=== PATIENT | female | born 1985 | race Caucasian/White ===

== ENCOUNTER → 2020-06-19 09:38 | Outpatient (BNVA) | payer MEDICAID, SELFPAY | PROVIDERS: PCP Internal Medicine; Referring Provider Internal Medicine; Visit Provider Dietitian, Registered | DX: Z76.89 Persons encountering health services in other specified circumstances (principal) ==

== ENCOUNTER → 2020-08-07 09:27 | Outpatient (BNVA) | payer MEDICAID, SELFPAY | PROVIDERS: PCP Internal Medicine; Visit Provider Dietitian, Registered | DX: Z76.89 Persons encountering health services in other specified circumstances (principal) ==

== ENCOUNTER → 2021-07-31 15:14 | Outpatient (BNVA) | payer MEDICAID, SELFPAY | PROVIDERS: PCP Internal Medicine; Visit Provider Physician Assistant | DX: E66.01 Morbid (severe) obesity due to excess calories (principal); Z68.41 Body mass index [BMI] 40.0-44.9, adult | CPT/HCPCS: 99212 ==

== ENCOUNTER 2021-08-10 10:42 | Outpatient (REF) | payer MEDICAID, SELFPAY ==
[2021-08-10 10:54] LABS: MANUAL DIFF FLAG NO
[2021-08-10 11:17] LABS: Basophils Percent Auto 0.4 % (0-2); Eosinophils Absolute Auto 0.2 X10*3/uL (0.0-0.4); Eosinophils Percent Auto 2.5 % (0-4); Hematocrit 32.2 % (37.0-47.0); Hemoglobin 9.4 g/dl (12.0-16.0); Imm Gran Abs Auto 0.02 X10*3/uL (0.00-0.03); Imm Gran Pct Auto 0.3 % (0.0-0.4); Lymphocytes Absolute Auto 1.8 X10*3/uL (1.2-4.9); Mean Corpuscular HGB Conc 29.2 g/dl (31.0-35.0); Mean Corpuscular Hemoglobin 22.4 pg (27.0-33.0); Mean Corpuscular Volume 76.8 fL (80.0-98.0); Mean Platelet Volume 10.1 fL (9.4-12.3); Monocytes Absolute Auto 0.4 X10*3/uL (0.1-1.2); Monocytes Percent Auto 5.4 % (2-11); Neutrophils Absolute Auto 4.5 x10*3/uL (2.0-8.3); Neutrophils Percent Auto 65.4 % (45-73); Platelet Count 416 X10*3/uL (160-400); Red Blood Count 4.19 X10*6/uL (4.20-5.50); White Blood Count 6.8 X10*3/uL (4.8-10.8)
[2021-08-10 12:02] LABS: Estimated Average Glucose 108 mg/dL; Hemoglobin A1c % 5.4 %
[2021-08-10 12:11] LABS: Alanine Aminotransferase 10 U/L (0-31); Albumin Level 3.8 g/dL (3.5-5.0); Alkaline Phosphatase 85 U/L (39-117); Anion Gap 10 (12-20); Aspartate Amino Transferase 13 U/L (5-31); Bilirubin Total 0.3 mg/dL (0.0-1.0); Blood Urea Nitrogen 9 mg/dL (9-16); Calcium 9.2 mg/dL (8.4-10.2); Carbon Dioxide 23 mmol/L (22-29); Chloride 110 mmol/L (96-108); Cholesterol 194 mg/dL; Estimated Glomerular Filt Rate > 60; Glucose Random 85 mg/dL (60-115); HDL Cholesterol 51 mg/dL; Iron 19 mcg/dL (30-160); LDL Cholesterol Calculated 121 mg/dl; Percent Iron Saturation 4 % (15-50); Potassium 4.3 mmol/L (3.3-5.1); Sodium 139 mmol/L (135-145); Total Iron Binding Capacity 449 mcg/dL (228-428); Total Protein 6.9 g/dL (6.5-8.0); Triglycerides 112 mg/dL; Unsaturated Iron Binding 430 ug/dL
[2021-08-10 12:35] LABS: Ferritin 3 ng/mL (10-122); Insulin 22 uU/mL (2-29); TSH reflex Free T4 1.19 uIU/mL (0.32-4.0); Vitamin D 25-OH Total 12.7 ng/mL (>30)
[2021-08-10 12:50] LABS: Folate 7.6 ng/mL (> or = 4.0); Vitamin B12 374 pg/mL (200-900)
[2021-08-12 14:42] LABS: Calcium (PTHI) 9.2 mg/dL (8.6-10.2); PTHI 30 pg/mL (14-64)
[2021-08-13 17:51] LABS: Vitamin A 34 mcg/dL (38-98)
[2021-08-14 00:55] LABS: Zinc 84 mcg/dL (60-130)
[2021-08-16 12:36] LABS: Vitamin B1 70 nmol/L (8-30)
== END 2021-08-10 10:43 | disposition home or self-care (01) ==
LOC: HO.LAB 10:42
PROVIDERS: Visit Provider Physician Assistant
DX: Z01.818 Encounter for other preprocedural examination (principal); E66.01 Morbid (severe) obesity due to excess calories
CPT/HCPCS: 36415; 80053; 80061; 82306; 82607; 82728; 82746; 83036; 83525; 83540; 83970; 84425; 84443; 84590; 84630; 85025; 86140

== ENCOUNTER → 2021-08-28 14:53 | Outpatient (BNVA) | payer MEDICAID, SELFPAY | PROVIDERS: PCP Internal Medicine; Visit Provider Physician Assistant | DX: E66.01 Morbid (severe) obesity due to excess calories (principal); Z68.41 Body mass index [BMI] 40.0-44.9, adult | CPT/HCPCS: 99211; 99212 ==

== ENCOUNTER 2021-08-29 08:30 | Outpatient (REF) | payer MEDICAID, SELFPAY ==
[2021-09-04 12:05] LABS: H Pylori Breath Test Positive (Negative)
== END 2021-08-29 08:31 | disposition home or self-care (01) ==
LOC: HO.LNP 08:30
PROVIDERS: Visit Provider Physician Assistant
DX: Z01.818 Encounter for other preprocedural examination (principal); E66.01 Morbid (severe) obesity due to excess calories
CPT/HCPCS: 83013

== ENCOUNTER → 2021-09-10 08:06 | Outpatient (BNVA) | payer MEDICAID, SELFPAY | PROVIDERS: PCP Internal Medicine; Visit Provider Dietitian, Registered | DX: E66.01 Morbid (severe) obesity due to excess calories (principal) | CPT/HCPCS: 97802 ==

== ENCOUNTER → 2021-09-17 08:10 | Outpatient (BNVA) | payer MEDICAID, SELFPAY | PROVIDERS: PCP Internal Medicine; Visit Provider Physician Assistant ==

== ENCOUNTER → 2021-10-10 08:29 | Outpatient (BNVA) | payer MEDICAID, SELFPAY | PROVIDERS: PCP Internal Medicine; Referring Provider Physician Assistant; Visit Provider Dietitian, Registered | DX: E66.01 Morbid (severe) obesity due to excess calories (principal); Z71.3 Dietary counseling and surveillance | CPT/HCPCS: 97803 ==

== ENCOUNTER 2021-10-16 09:19 | Outpatient (REF) | payer MEDICAID, SELFPAY ==
--- NOTE | ~2021-10-16 | XR_ITS ---
EXAMINATION: XR CHEST CLINICAL INFORMATION: Obesity COMPARISON: Previous chest x-ray March 2020 TECHNIQUE: 2 views of the chest were obtained. FINDINGS: No significant abnormality is noted involving the heart, lungs, mediastinum, bony thorax or soft tissues. XR/XR chest 2V IMPRESSION: Unremarkable examination.
--- NOTE | ~2021-10-16 | US_ITS ---
EXAMINATION: US COMPLETE ABDOMEN WITH LIVER ELASTOGRAPHY CLINICAL INFORMATION: Obesity. COMPARISON: None. TECHNIQUE: Real-time imaging of the abdominal viscera. Noninvasive ultrasound liver fibrosis assessment is performed using Xochitl ElastPQ point quantification shear wave elastography (2D-SWE) with a C5-2 MHz transducer. Multiple elastography samples are obtained. FINDINGS: PANCREAS: Normal. ABDOMINAL AORTA: The proximal, middle, and distal aortic segments are normal in caliber. INFERIOR VENA CAVA: Visualized portions are normal. LIVER: Liver echotexture is increased. The liver demonstrates normal size, and contour. No focal lesion or intrahepatic biliary duct dilatation. The right lobe measures 15 cm in length. The left lobe measures 10.7 cm in length. Portal flow is normal/hepatopedal. Shear wave liver elastography median stiffness is 1.3 m/s (reference: normal median stiffness is 1.3 m/s or less). IQR/median stiffness to assess sampling precision is 0.18 (reference: good quality data set is IQR/median stiffness of 0.15 or less). GALLBLADDER: Normal. The gallbladder is physiologically distended without evidence of stones, sludge, polyps, wall thickening or pericholecystic fluid. COMMON BILE DUCT: Normal in caliber measuring 0.3 cm in diameter. RIGHT KIDNEY: Normal. No hydronephrosis. No renal calculi or focal parenchymal lesions. The kidney measures 11 cm in maximum dimension. LEFT KIDNEY: There is a 1.2 x 1.3 x 1.2 cm cyst in the midpole. No hydronephrosis. No renal calculi or focal parenchymal lesions. The kidney measures 11.6 cm in maximum dimension. SPLEEN: Normal. The spleen measures 11 cm in maximum dimension. FREE FLUID: None. US/US abdomen comp w elastography IMPRESSION: 1. Impression: Echogenic liver. Small left renal cyst. 2. Liver elastography: Slightly limited due to sampling error. High probability of being normal. REFERENCE: Society of Radiologists in Ultrasound Liver Stiffness Thresholds (2020): LIVER STIFFNESS THRESHOLDS: *Liver Stiffness equal or less than 1.3 m/s: *Liver Stiffness less than 1.7 m/s: In the absence of other known clinical signs, rules out compensated advanced chronic liver disease. *Liver Stiffness 1.7-2.1 m/s: Suggestive of compensated advanced chronic liver disease but need further test for confirmation. *Liver Stiffness over 2.1 m/s: Rules in compensated advanced chronic liver disease. *Liver Stiffness over 2.4 m/s: Suggestive of clinically significant portal hypertension. QUALITY OF DATA SET: *IQR/Median value equal or less than 0.15 implies a quality data set. *IQR/Median value over 0.15 implies a poor quality data set. SIGNIFICANT CHANGE FROM PRIOR EXAM: Significant change if liver stiffness measurement is 10% or greater from prior exam. OTHER CONSIDERATIONS: The stage of liver fibrosis may be overestimated in the setting of acute hepatitis, liver inflammation, elevated liver function tests, hepatic vascular congestion, obstructive cholestasis, non-fasting state, and infiltrative diseases such as amyloidosis and lymphoma. In some patients with NAFLD, the liver stiffness thresholds for compensated advanced chronic liver disease may be lower. In causes other than viral hepatitis and NAFLD, liver stiffness thresholds are not well established.
--- NOTE | ~2021-10-16 | FL_ITS ---
EXAMINATION: XR FLUOROSCOPY UPPER GI WITH AIR CLINICAL INFORMATION: Morbid obesity. COMPARISON: None TECHNIQUE: Air-contrast upper GI examination. FINDINGS: There is normal apposition of the vocal cords while saying E . There is normal elevation of the soft palate while saying candy . Patient drank thin and thick barium without difficulty. There is no evidence of nasopharyngeal reflux or tracheal aspiration. There is normal esophageal motility without evidence of persistent stricture or mucosal abnormality. There is noted to be some mild transient esophageal reflux within the distal third of the esophagus with patient moving on table. The stomach demonstrates normal distensibility without abnormal mass or ulceration. There was no delay in gastric emptying. The duodenal bulb and sweep appeared unremarkable. FLUOROSCOPY TIME: 1.6 minutes. DOSE AREA PRODUCT: 16.659 Gy-cm2 (song-centimeter squared). FL/FL upper GI w air IMPRESSION: Mild transient gastroesophageal reflux. Otherwise unremarkable air-contrast upper GI examination.
--- NOTE | 2021-10-16 12:14 | ECG_ITS ---
Test Reason : obesity Blood Pressure : / mmHG Vent. Rate : 064 BPM Atrial Rate : 064 BPM P-R Int : 178 ms QRS Dur : 086 ms QT Int : 384 ms P-R-T Axes : 020 -03 011 degrees QTc Int : 396 ms Normal sinus rhythm Normal ECG When compared with ECG of 13-MAR-2020 11:02, No significant change was found Referred By: Yuki Aguiar Electronically Signed By:Alessio Austin
[2021-10-17 13:08] LABS: H Pylori Breath Test Negative (Negative)
== END 2021-10-16 09:20 | disposition home or self-care (01) ==
LOC: HO.US 09:19
PROVIDERS: Visit Provider Physician Assistant
DX: Z01.818 Encounter for other preprocedural examination (principal); E66.01 Morbid (severe) obesity due to excess calories
CPT/HCPCS: 36415; 71046; 74246; 76705; 76981; 83013; 93005; 99211; 99212

== ENCOUNTER → 2021-11-20 08:17 | Outpatient (BNVA) | payer MEDICAID, SELFPAY | PROVIDERS: PCP Internal Medicine; Referring Provider Physician Assistant; Visit Provider Dietitian, Registered | DX: E66.01 Morbid (severe) obesity due to excess calories (principal); Z68.38 Body mass index [BMI] 38.0-38.9, adult | CPT/HCPCS: 97803 ==

== ENCOUNTER → 2021-11-22 14:58 | Outpatient (BNVA) | payer MEDICAID, SELFPAY | PROVIDERS: PCP Internal Medicine; Visit Provider Physician Assistant | DX: E66.01 Morbid (severe) obesity due to excess calories (principal); Z68.38 Body mass index [BMI] 38.0-38.9, adult | CPT/HCPCS: 99212 ==

== ENCOUNTER → 2021-12-10 08:22 | Outpatient (BNVA) | payer MEDICAID, SELFPAY | PROVIDERS: PCP Internal Medicine; Referring Provider Physician Assistant; Visit Provider Dietitian, Registered | DX: E66.01 Morbid (severe) obesity due to excess calories (principal); Z68.37 Body mass index [BMI] 37.0-37.9, adult | CPT/HCPCS: 97803 ==

== ENCOUNTER → 2021-12-11 14:02 | Outpatient (BNVA) | payer MEDICAID, SELFPAY | PROVIDERS: PCP Internal Medicine; Visit Provider Physician Assistant | DX: E66.01 Morbid (severe) obesity due to excess calories (principal); Z68.37 Body mass index [BMI] 37.0-37.9, adult | CPT/HCPCS: 99212 ==

== ENCOUNTER → 2022-01-02 15:22 | Outpatient (BNVA) | payer MEDICAID, SELFPAY | PROVIDERS: PCP Internal Medicine; Visit Provider Physician Assistant | DX: E66.01 Morbid (severe) obesity due to excess calories (principal); Z68.37 Body mass index [BMI] 37.0-37.9, adult | CPT/HCPCS: 99212 ==

== ENCOUNTER → 2022-01-20 14:57 | Outpatient (BNVA) | payer MEDICAID, SELFPAY | PROVIDERS: PCP Internal Medicine; Visit Provider Surgery | DX: E66.01 Morbid (severe) obesity due to excess calories (principal); E55.9 Vitamin D deficiency, unspecified; E50.9 Vitamin A deficiency, unspecified; D64.9 Anemia, unspecified; K75.81 Nonalcoholic steatohepatitis (NASH); F32.A Depression, unspecified; F50.81 Binge eating disorder; Z68.36 Body mass index [BMI] 36.0-36.9, adult | CPT/HCPCS: 99202 ==

== ENCOUNTER 2022-01-27 16:56 | Outpatient (REF) | payer MEDICAID, SELFPAY ==
[2022-01-27 17:07] LABS: MANUAL DIFF FLAG NO
[2022-01-27 17:46] LABS: Basophils Percent Auto 0.5 % (0-2); Eosinophils Absolute Auto 0.2 X10*3/uL (0.0-0.4); Hematocrit 33.1 % (37.0-47.0); Hemoglobin 10.1 g/dl (12.0-16.0); Imm Gran Abs Auto 0.01 X10*3/uL (0.00-0.03); Imm Gran Pct Auto 0.1 % (0.0-0.4); Lymphocytes Absolute Auto 2.4 X10*3/uL (1.2-4.9); Lymphocytes Percent Auto 29.7 % (20-40); Mean Corpuscular HGB Conc 30.5 g/dl (31.0-35.0); Mean Corpuscular Hemoglobin 26.5 pg (27.0-33.0); Mean Corpuscular Volume 86.9 fL (80.0-98.0); Monocytes Absolute Auto 0.5 X10*3/uL (0.1-1.2); Monocytes Percent Auto 6.4 % (2-11); Neutrophils Absolute Auto 4.8 x10*3/uL (2.0-8.3); Neutrophils Percent Auto 60.3 % (45-73); Platelet Count 345 X10*3/uL (160-400); Red Blood Count 3.81 X10*6/uL (4.20-5.50); Red Cell Distribution Width 14.6 % (11.0-16.0)
[2022-01-31 00:07] LABS: Vitamin A 38 mcg/dL (38-98)
== END 2022-01-27 16:57 | disposition home or self-care (01) ==
LOC: HO.LAB 16:56
PROVIDERS: PCP Internal Medicine; Visit Provider Surgery
DX: D64.9 Anemia, unspecified (principal); E55.9 Vitamin D deficiency, unspecified; E66.01 Morbid (severe) obesity due to excess calories
CPT/HCPCS: 36415; 82306; 84590; 85025

== ENCOUNTER → 2022-02-14 13:41 | Outpatient (BNVA) | payer MEDICAID, SELFPAY | PROVIDERS: PCP Internal Medicine; Visit Provider Physician Assistant | DX: E66.01 Morbid (severe) obesity due to excess calories (principal); K75.81 Nonalcoholic steatohepatitis (NASH); Z68.36 Body mass index [BMI] 36.0-36.9, adult | CPT/HCPCS: 99212 ==

== ENCOUNTER → 2022-06-10 15:23 | Outpatient (BNVA) | payer MEDICAID, SELFPAY | PROVIDERS: PCP Internal Medicine; Visit Provider Physician Assistant | DX: E66.01 Morbid (severe) obesity due to excess calories (principal); Z68.37 Body mass index [BMI] 37.0-37.9, adult; K75.81 Nonalcoholic steatohepatitis (NASH) | CPT/HCPCS: 99212 ==

== ENCOUNTER → 2022-07-01 14:54 | Outpatient (BNVA) | payer MEDICAID, SELFPAY | PROVIDERS: PCP Internal Medicine; Visit Provider Surgery | DX: E66.01 Morbid (severe) obesity due to excess calories (principal); Z68.37 Body mass index [BMI] 37.0-37.9, adult; K75.81 Nonalcoholic steatohepatitis (NASH); F32.A Depression, unspecified; E55.9 Vitamin D deficiency, unspecified; E50.9 Vitamin A deficiency, unspecified | CPT/HCPCS: 99212 ==

== ENCOUNTER → 2022-07-07 15:02 | Outpatient (BNVA) | payer MEDICAID, SELFPAY | PROVIDERS: PCP Internal Medicine; Visit Provider Physician Assistant | DX: E66.01 Morbid (severe) obesity due to excess calories (principal); K75.81 Nonalcoholic steatohepatitis (NASH); Z68.37 Body mass index [BMI] 37.0-37.9, adult | CPT/HCPCS: 99212 ==

== ENCOUNTER 2022-07-18 08:38 | Outpatient (REF) | payer MEDICAID, SELFPAY ==
[2022-07-18 08:55] LABS: MANUAL DIFF FLAG NO
[2022-07-18 09:09] LABS: Basophils Absolute Auto 0.1 X10*3/uL (0.0-0.2); Eosinophils Absolute Auto 0.1 X10*3/uL (0.0-0.4); Eosinophils Percent Auto 2.5 % (0-4); Hematocrit 37.1 % (37.0-47.0); Hemoglobin 11.4 g/dl (12.0-16.0); Imm Gran Abs Auto 0.01 X10*3/uL (0.00-0.03); Imm Gran Pct Auto 0.2 % (0.0-0.4); Lymphocytes Absolute Auto 1.5 X10*3/uL (1.2-4.9); Lymphocytes Percent Auto 29.3 % (20-40); Mean Corpuscular HGB Conc 30.7 g/dl (31.0-35.0); Mean Corpuscular Hemoglobin 24.7 pg (27.0-33.0); Mean Corpuscular Volume 80.3 fL (80.0-98.0); Mean Platelet Volume 10.3 fL (9.4-12.3); Monocytes Absolute Auto 0.3 X10*3/uL (0.1-1.2); Monocytes Percent Auto 6.2 % (2-11); Neutrophils Absolute Auto 3.1 x10*3/uL (2.0-8.3); Neutrophils Percent Auto 60.8 % (45-73); Platelet Count 417 X10*3/uL (160-400); Red Blood Count 4.62 X10*6/uL (4.20-5.50); Red Cell Distribution Width 14.5 % (11.0-16.0); White Blood Count 5.2 X10*3/uL (4.8-10.8)
[2022-07-18 09:21] LABS: Estimated Average Glucose 100 mg/dL; Hemoglobin A1c % 5.1 %
[2022-07-18 09:39] LABS: Alanine Aminotransferase 15 U/L (0-31); Albumin Level 4.3 g/dL (3.5-5.0); Alkaline Phosphatase 78 U/L (39-117); Anion Gap 16 (12-20); Aspartate Amino Transferase 21 U/L (5-31); Bilirubin Total 0.5 mg/dL (0.0-1.0); Blood Urea Nitrogen 10 mg/dL (9-16); C Reactive Protein 1.13 mg/dL (< or = 0.50); Calcium 9.9 mg/dL (8.4-10.2); Carbon Dioxide 23 mmol/L (22-29); Chloride 102 mmol/L (96-108); Cholesterol 171 mg/dL; Estimated Glomerular Filt Rate > 60; Glucose Random 73 mg/dL (60-115); HDL Cholesterol 39 mg/dL; Iron 22 mcg/dL (30-160); LDL Cholesterol Calculated 121 mg/dl; Percent Iron Saturation 6 % (15-50); Potassium 4.1 mmol/L (3.3-5.1); Sodium 137 mmol/L (135-145); Total Iron Binding Capacity 395 mcg/dL (228-428); Total Protein 7.5 g/dL (6.5-8.0); Triglycerides 57 mg/dL; Unsaturated Iron Binding 373 ug/dL
[2022-07-18 09:50] LABS: INTERNATIONAL NORM RATIO 1.2 (0.9-1.1); Prothrombin Time 14.1 SEC (10.0-13.1)
[2022-07-18 09:53] LABS: Partial Thromboplastin Time 33.7 SEC (26.0-36.4)
[2022-07-18 10:04] LABS: Ferritin 10 ng/mL (10-122); TSH reflex Free T4 1.44 uIU/mL (0.32-4.0)
[2022-07-18 10:16] LABS: Vitamin B12 > 2000 pg/mL (200-900)
[2022-07-18 12:43] LABS: Vitamin D 25-OH Total 29.7 ng/mL (>30)
[2022-07-21 17:27] LABS: PTHI 42 pg/mL (16-77)
[2022-07-22 17:55] LABS: Zinc 71 mcg/dL (60-130)
[2022-07-24 06:31] LABS: Vitamin B1 8 nmol/L (8-30)
[2022-07-24 15:21] LABS: Vitamin A 22 mcg/dL (38-98)
== END 2022-07-18 08:39 | disposition home or self-care (01) ==
LOC: HO.LAB 08:38
PROVIDERS: Visit Provider Surgery
DX: E50.9 Vitamin A deficiency, unspecified (principal); E55.9 Vitamin D deficiency, unspecified; E66.01 Morbid (severe) obesity due to excess calories; F32.A Depression, unspecified; K75.81 Nonalcoholic steatohepatitis (NASH)
CPT/HCPCS: 36415; 80053; 80061; 82306; 82607; 82728; 83036; 83540; 83970; 84425; 84443; 84590; 84630; 85025; 85610; 85730; 86140

== ENCOUNTER 2022-07-23 06:06 | Inpatient (IN) | payer MEDICAID, SELFPAY ==
[2022-07-15 14:19] VITALS: BMI 37.0
--- NOTE | 2022-07-22 11:08 | P.CONAN_ITS ---
Documented by User: Trena Marquez NP 07/22/22 11:09 HPI - Anesthesia Eval Consult details Narrative: 36yo F for Gastrectomy Sleeve,EGD,poss diaphragmatic hernia,poss ventral hernia,poss open, PMFSH Active Problems Active Problems: All Active Problems (Updated 01/20/22 @ 16:46 by Jd Romero MD) Vitamin A deficiency (Acute) Binge eating disorder (Acute) Depression (Acute) Nonalcoholic steatohepatitis (RANDOLPH) (Acute) Anemia (Acute) Pre-op evaluation (Acute) Morbid obesity (Acute) Vitamin D deficiency (Acute) Past Medical History Medical History Vitamin D deficiency Family History Family History Mother No problems noted. Father Diabetes Hypertension Bipolar 1 disorder Brother No problems noted. Brother No problems noted. Brother No problems noted. Brother No problems noted. Sister No problems noted. Sister No problems noted. Sister No problems noted. Daughter No problems noted. Daughter No problems noted. Daughter No problems noted. Surgical History Surgical History Hx of tubal ligation Social History Social History Are you a primary childcare director to a significant other at home: No Do you presently have visiting nurse or other home services: No Alcohol intake: never Patient Tobacco Use Status: Former Tobacco user Quit Date: 2016 Tobacco use type: Cigarette Years Smoked: 6 Use of substances other than those prescribed or required for medical reasons: No Have you been hit, kicked, punched, or otherwise hurt by someone within the past year? If so, by whom?: No Are you DNR?: No Advance Directives: No Advance Directives Information Provided: Yes (brochure mailed) Advance Directives on File: No Recently lost weight without trying: No Eating poorly because of decreased appetite: No Nutrition Risks: No Nutritional Risk Patient : No FDLMP: 07/09/22 : No Poor oral hygiene: No Meds Allergies Allergy/AdvReac Type Severity Reaction Status Date / Time No Known Allergies Allergy Verified 07/15/22 08:43 Active Medications: Current Medications Cyanocobalamin (Cyanocobalamin (Vitamin B-12) 500 Mcg Tablet) 500 mcg PO DAILY [facility] Ferrous Sulfate (Ferrous Sulfate 324 Mg Tablet.) 324 mg PO DAILY [facility] Multivitamins/Vitamin C (Multivitamin Tablet) 1 tab PO DAILY [facility] Vitamin D (Cholecalciferol (Vitamin D3) 25 Mcg Tablet) 50 mcg PO DAILY [facility] Home Medications Medication Instructions Recorded Confirmed Last Taken Type multivitamin 1 tab PO DAILY 07/31/21 07/15/22 Unknown History Exam Exam Date and Time: July 22, 2022 1108 Height,Weight and Vital Signs: Height 5 ft 2 in Weight 91.716 kg Pertinent Lab Results Pertinent Lab Results: Laboratory Tests 07/18/22 08:50 Blood Type O Positive Antibody Screen NEGATIVE Laboratory Tests 07/18/22 07/18/22 08:54 08:54 WBC 5.2 Hgb 11.4 L Hct 37.1 Plt Count 417 H Sodium 137 Potassium 4.1 Chloride 102 Carbon Dioxide 23 BUN 10 Creatinine 0.65 Narrative Narrative: EKG 10/2021 Vent. Rate : 064 BPM ? ? Atrial Rate : 064 BPM ?? P-R Int : 178 ms? QRS Dur : 086 ms ? ? QT Int : 384 ms ? ? ? P-R-T Axes : 020 -03 011 degrees ?? QTc Int : 396 ms ? Normal sinus rhythm Normal ECG When compared with ECG of 13-MAR-2020 11:02, No significant change was found Assessment and Plan Assessment Anesthesia Assessment: Chart Reviewed Documented by User: Eva Rogers MD 07/23/22 07:31 [facility] Active Problems Active Problems: All Active Problems (Updated 01/20/22 @ 16:46 by Jd Romero MD) Vitamin A deficiency (Acute) Binge eating disorder (Acute) Depression (Acute) Nonalcoholic steatohepatitis (RANDOLPH) (Acute) Anemia (Acute) Pre-op evaluation (Acute) Morbid obesity (Acute) Vitamin D deficiency (Acute) Denies EMMA, snoring Past Medical History Medical History Vitamin D deficiency Family History Family History Mother No problems noted. Father Diabetes Hypertension Bipolar 1 disorder Brother No problems noted. Brother No problems noted. Brother No problems noted. Brother No problems noted. Sister No problems noted. Sister No problems noted. Sister No problems noted. Daughter No problems noted. Daughter No problems noted. Daughter No problems noted. Family history of problems with anesthesia: No Surgical History Surgical History Hx of tubal ligation History of Problems with Anesthesia: No Social History Social History Are you a primary childcare director to a significant other at home: No Do you presently have visiting nurse or other home services: No Alcohol intake: never Patient Tobacco Use Status: Former Tobacco user Quit Date: 2016 Tobacco use type: Cigarette Years Smoked: 6 Use of substances other than those prescribed or required for medical reasons: No Have you been hit, kicked, punched, or otherwise hurt by someone within the past year? If so, by whom?: No Are you DNR?: No Advance Directives: No Advance Directives Information Provided: Yes (brochure mailed) Advance Directives on File: No Recently lost weight without trying: No Eating poorly because of decreased appetite: No Nutrition Risks: No Nutritional Risk Patient : No FDLMP: 07/09/22 : No Poor oral hygiene: No Meds Allergies Allergy/AdvReac Type Severity Reaction Status Date / Time No Known Allergies Allergy Verified 07/15/22 08:43 Home Medications Medication Instructions Recorded Confirmed Last Taken Type multivitamin 1 tab PO DAILY 07/31/21 07/15/22 Unknown History Exam Height,Weight and Vital Signs: Height 5 ft 2 in Weight 91.716 kg Vital Signs Temp Pulse Resp BP Pulse Ox O2 Del Method 07/23/22 06:23 97.5 F 85 18 114/78 99 Room Air Airway Mallampati Class: II TM Dist: >3cm Neck ROM: Full Loose/Missing/Broken Teeth: Yes (1 broken back right, some missing) Heart: RRR Lungs: CTAB Assessment and Plan Assessment Anesthesia Assessment: Anesthesia Plan Discussed Final Anesthetic Review Family History of Problems with Anesthesia: No History of Problems with Anesthesia: No NPO: Yes ASA Class: III Final Preanesthetic Review: No Changes in Pt Med Stat, Meds/Allgs Chart Reviewed, Consent Obtained/Reviewed and Anes Risks/Benef Reviewed Patient Risk: Intermediate Procedure Risk: Intermediate Assessment/Block/Sedation in SS: Assess/Block/Sedation-SS Anesthetic Plan Anesthetic Plan: GA Disposition: Standard PACU and Inp. Admit - Standard Bed
[2022-07-22 15:06] LABS: COVID-19 Test Negative (Negative); IDNOW Serial# 16C4AD1C
[2022-07-23] VITALS (11 sets, daily range): BP systolic 112–152; BP diastolic 59–95; PULSE 75–88; RESP 14–18; TEMP 36.1–37.2; O2SAT 96–100
--- NOTE | 2022-07-23 07:04 | PHA.MEDREC ---
Pharmacy Consult ? Medication Reconciliation Pharmacy has reviewed the medication reconciliation completed by nursing. Naila Fleming, ZainD
--- NOTE | 2022-07-23 07:13 | MHC.SHP ---
Pre-Procedural Eval Section A Date of Service: 07/23/22 The patient is an INPATIENT: Yes The History & Physical has been completed within 30 days and I have reviewed it.: Yes Section B Chief Complaint: s/p sleeve gastrectomy Allergies: Allergies Allergy/AdvReac Type Severity Reaction Status Date / Time No Known Allergies Allergy Verified 07/15/22 08:43 Plan I have reviewed the history and physical and performed a pertinent physical examination on my patient. No changes have occurred unless specified.
--- NOTE | 2022-07-23 07:14 | P.EN_ITS ---
Event Note Date of Service: 07/23/22 Event Note: The patient was seen with the hospital motor vehicle parts interpreter at bedside. Patient denies interval change to her health, medications and notes that she is here for a laparoscopic sleeve gastrectomy, confirming the procedure. Her questions were satisfactorily answered with the help of the motor vehicle parts interpreter. She has requested I contact Michele, her , postoperatively [phone].
[2022-07-23] MEDS: Lactated Ringers 1,000 ML 150 ML IVCONT (07:16)
--- NOTE | 2022-07-23 07:16 | W.PM.OPN ---
Operative Note Operative Note Date of Service: 07/23/22 Narrative: Preop diagnosis: [Morbid obesity, RANDOLPH, GERD] Postop diagnosis: [same] Procedure: [Laparoscopic sleeve gastrectomy, intraoperative upper endoscopy, gastropexy] Surgeon: Jd Romero MD Assist: [Yuki Aguiar PA-C] Anesthesia: [General endotracheal, ropivacaine, 0.5%] Estimated blood loss: [10cc] Specimen: [Portion of stomach with fundus] Intraoperative findings: [Grossly normal liver and stomach. No evidence of hiatal hernia.] Indications: [The patient is a 36-year-old woman who presented to the Bariatric surgery program with a lifelong castillo with obesity and related RANDOLPH. Following demonstration of successful engagement in healthy lifestyle choices as evidence by dietary change, exercise and weight loss, the patient wanted to proceed with a laparoscopic sleeve gastrectomy, intraoperative endoscopy, possible hiatal hernia or ventral hernia repair or open procedure if absolutely necessary for safety reasons. I reviewed the inherent risks of this procedure which include, but are not limited to: Bleeding that could require another operation or blood transfusion; the inherent risks of transfusion reaction infectious disease from blood transfusions; the risk of staple line leaks that could cause sepsis, multi-system organ failure and ; the risk of mesenteric or deep vein thrombosis of the lower extremities that could cause a fatal pulmonary embolism was reviewed; the risk of GERD that could require conversion to gastric bypass was discussed; the risk of recurrent hiatal hernia, especially in the setting of weight regain was reviewed. The risk of weight regain if maladaptive eating and sedentary behavior continue was discussed. The importance of proper diet and increased activity to augment surgical weight loss and the fact that no operation would result in weight loss of poor dietary decisions and sedentary behavior are resumed were discussed at length and apparently understood. The patient had an language interpreter present in the office and in preoperative holding this morning and seemed to have her questions satisfactorily answered.] Procedure: [The patient was identified in the preoperative holding area by myself and again in the operating suite by myself and the team. Patient was placed supine on the operating table. Safety straps were utilized and a footboard utilized. The patient was induced in general endotracheal anesthesia administered with excellent effect. An appropriate time-out was performed. The patient's abdomen was then widely prepped and draped in the usual manner for surgery using chlorhexidine. Antibiotics per protocol were administered by Anesthesia. After infiltrating preemptive local in the skin and subcutaneous tissues in the epigastrium approximately 10cm from the xiphoid and the midline of the epigastrium, a stab incision was made sharply in the left subcostal abdomen and the Veress needle inserted without incident. An appropriate drop test was performed then a pneumoperitoneum of 15 mmHg was obtained using carbon dioxide. Opening pressures were 7 mmHg. Next, a 5 mm 0 degree scope over a 5 mm Optiview trocar was used to access the abdomen via the epigastric incision in the midline. Once the abdomen was entered, the the trocar obturator was removed and the laparoscope was used to confirm there was no injury from the Veress needle nor trocar insertion injury to the bowel or mesentery, then the scope was switched to a 5 mm 45 degree laparoscope. Next, using preemptive local, additional 5 mm trocars were placed under direct laparoscopic vision on the patient's left abdomen, then right and the 5 mm midline trocar upsized to a 12 mm to accommodate the stapler. The patient was then positioned in reverse Trendelenburg and the liver retractor deployed through the right lateral 5 mm trocar and secured. A 40 Nepali ViSiGi bougie was inserted by Anesthesia per os and advanced to the stomach to decompress. It was then withdrawn to the GE junction all under direct laparoscopic vision. Dissection was begun along the greater curvature using the 5 mm [place] LigaSure for hemostasis and continued to the left eilas of the diaphragm. Dissection was then carried towards the pylorus to 3-4 cm from the pylorus and retro gastric adhesions lysed. The gastroesophageal fat pad was carefully mobilized taking care to avoid injury to the esophagus and stomach and dissection carried towards the short gastrics taking care to avoid injury to the spleen and splenic artery. The diaphragmatic hiatus was carefully examined for a hernia. Next, the 40 Fr ViSiGi bougie was advanced by anesthesia under direct vision and laparoscopic guidance and positioned in the antrum approximately 3 cm from the pylorus using laparoscopic graspers to serve as a guide for a stapled sleeve gastrectomy. Stapling was performed with Differential Endo-GLENN stapler with a purple 45 and then orange 60 loads. The bougie served as a guide to maintain the same sleeve caliber to avoid stricture & sleeve distortion. The 10 mm clip cloth covered helmet puller was used to apply additional clips to the staple line. Care was taken to be sure that the sleeve laid flat and was without stricture. Once the sleeve was complete, the portion of stomach was placed in the lower abdomen to be sent for permanent section. The staple line, gastrocolic omentum, spleen and short gastric areas were all inspected for hemostasis which was found to be good. The ViSiGi bougie used for a leak test by reducing the reverse Trendelenburg and instilling sterile saline. Anesthesia that ran of O2 at 1 L per minute via the tube and no bubbles were demonstrated from the staple line. Next, the bougie was withdrawn under laparoscopic vision used to suction the esophagus and hypopharynx and then discarded. Next, I broke scrub perform an on-table upper endoscopy to assess the sleeve and the esophagus and stomach. The patient was returned to neutral position and the Olympus 160 gastroscope was advanced per os taking care to preserve the endotracheal tube. The esophagus was intubated without incident. Minimal air was insufflated and the scope advanced into the newly formed sleeve. The staple line was inspected for hemostasis and the morphology of the sleeve appeared straight with a uniform diameter. Intraoperatively, there was no evidence of staple line leak seen during laparoscopy as air was insufflated via endoscope. The scope was then used to aspirate the air from the sleeve withdrawn and removed. I then rescrubbed to return to the operative field and again inspected the field for hemostasis. The patient was again placed in reverse Trendelenburg. A gastropexy was performed using 2-0 Polysorb suture to secure the sleeve gastrectomy to the gastrocolic omentum. After final assessment for hemostasis, the patient was returned to neutral position, a Jessica used to withdraw the stomach which was sent for permanent section. The fascia of the 12 mm midline was closed using an 0 Polysorb on a suture passer under direct laparoscopic vision. The abdomen was then deflated and all trocars removed. The suture was then tied and the skin closed with 4-0 Monocryl subcuticular sutures. The abdomen was then washed and dried, benzoin and Steri-Strips applied followed by Band-Aids. The patient tolerated the procedure well was then extubated the recover in stable condition. All sponge needle and instrument counts were correct x2. The pt's , Michele, was called by Yuki Aguiar at my request (since he only speaks Latvian) at [phone]. He was apprised the operation went well without complication & his questions were answered.]
[2022-07-23] MEDS: Scopolamine 1.5 MG PATCH.TD.3 TRANSDERMA (07:19)
--- NOTE | 2022-07-23 10:49 | PM.DS ---
DS: Providers Provider Date of Service: 07/24/22 Date of admission: 07/23/22 06:06 Primary care physician: Viv Jin MD DS: Summary Hospital Course Hospital Course: ADMITTING DIAGNOSIS: morbid obesity, anemia DISCHARGE DIAGNOSIS: same, s/p laparoscopic sleeve gastrectomy PAST SURGICAL HISTORY: tubal ligation PROCEDURE: upper endoscopy, laparoscopic sleeve gastrectomy and gastropexy DISCHARGE SUMMARY: History of Present Illness: The patient is a 36 year-old woman with a BMI of 43kg/m2 and associated co-morbidities as described above. The patient had extensive work-up,lost 22.4 lbs preoperatively and was electively scheduled for laparoscopic, possible open sleeve gastrectomy and gastropexy. Risks and complications of the surgery were discussed with the patient in advance, particularly the possibility of , pulmonary embolism, anastomotic leak, bleeding, bowel injury, GERD, cardiac, renal or pulmonary complications. The patient understood all the risks and was in agreement with the surgical plan. Hospital Course: The patient underwent an uneventful laparoscopic sleeve gastrectomy with gastropexy on the day of admission. Postoperatively, the patient was transferred to the surgical floor. The patient received IV Acetaminophen and IV dilaudid for pain control. Patient was started on bariatric phase 1 diet POD #0. On postoperative day one, the patient was feeling well without nausea, vomiting, fevers, or tachycardia. The patient had some mild incisional pain and the abdomen was soft. On the morning of postoperative day one, the patient was continued on 1 ounce of water or ice every half hour. During the day, the patient did fairly well, having some incisional pain, but able to ambulate adequately and to tolerate liquids well. Since the patient is doing well, we decided that the patient was ready to be discharged. The patient was given instructions to follow-up with me next week and to call my office for any fever over 101, persistent abdominal pain, nausea, vomiting, GERD, symptoms of DVT such as calf tenderness, or leg swelling, or pulmonary embolism such as chest pain or shortness of breath. The patient was also instructed to drink 40-60 ounces of liquids per day using the 1-ounce cups. The patient had been given prescriptions for Tylenol for pain, Zofran prn for nausea, and pantoprazole and carafate previously. The patient was encouraged to ambulate and use the incentive spirometer. The patient was allowed to shower, but no baths, and encouraged to stay active at home. All of these instructions were given to the patient personally. All questions were answered and the patient understood all instructions, the instructions were also given to the patient in print. Time Spent with Patient Time attestation: Total time spent providing and/or coordinating discharge services: Discharge coordination time: Less than 30 minutes Quality: Safe Use of Opioids Does Pt have an Active Cancer Diagnosis on the Problem List?: No Quality: Stroke Does the patient have a stroke diagnosis?: No Physical Exam Vital Signs: Vital Signs: Last Vital Signs Temp 97.5 F 07/23/22 06:23 Pulse 85 07/23/22 06:23 Resp 18 07/23/22 06:23 BP 114/78 07/23/22 06:23 Pulse Ox 99 07/23/22 06:23 O2 Del Method 07/23/22 06:23 BMI result Body Mass Index 37.0 DS: Data Data Completed and Pending Pending studies at discharge: Pending at discharge 07/23/22 10:11 Surgical [PTH] Routine Labs on day of discharge: Laboratory Results - last 24 hr 07/22/22 14:40 COVID-19 ([facility]) Negative COVID-19 Clin Com See Note Discharge Plan Discharge Anticipated Discharge Date/Time: 07/24/22 10:46 Patient Disposition: Home, Self-Care Discharge Diagnosis: s/p sleeve gastrectomy Referrals: Viv Jin MD [Primary Care Provider] - 1 Week Jd Romero MD [Physician] - 1 Week Discharge Medications: Continued ondansetron HCl 4 mg tablet 4 mg PO Q6H PRN (Reason: nausea and vomiting) Qty: 20 0RF pantoprazole 40 mg tablet,delayed release (DR/EC) 40 mg PO DAILY Qty: 90 1RF sucralfate 100 mg/mL suspension 1 g PO BID 30 Days Qty: 600 1RF acetaminophen 500 mg/15 mL liquid 500 mg PO Q4-6H PRN (Reason: fever or pain) Qty: 237 1RF Discontinued cholecalciferol (vitamin D3) 50 mcg (2,000 unit) capsule 50 mcg PO DAILY Qty: 90 2RF ferrous sulfate 325 mg (65 mg iron) tablet 325 mg PO DAILY Qty: 30 6RF Rx Instructions: Take with 500 mg vitamin C. multivitamin Tablet 1 tab PO DAILY cyanocobalamin (vitamin B-12) 500 mcg tablet 500 mcg PO DAILY Qty: 30 6RF polyethylene glycol 3350 [Miralax] 17 gram powder in packet See Rx Instructions PO DAILY Qty: 14 0RF Rx Instructions: Take 7 packets 2 days before surgery and 7 packets 1 day before surgery. Mix each packet with 8 oz's of water before surgery. Discharge Orders: Discharge Order (Routine); Ordered 07/24/22 Ordered By: Jd Romero Diet: Bariatric Diet Activity on Discharge: No heavy lifting Stand Alone Forms: Patient Portal Discharge page Care Plan Goals: weight loss Health Concerns: morbid obesity Plan of Treatment: No tub baths, sex or returning to work until discussed at first post op appointment. No exercise, alcohol, tobacco or illegal drug use. Continue to use incentive spirometer hourly while awake. Walk in home for 5- 10 minutes every 2 hours during the first week. Continue phase 1 diet today and start phase 2 diet tomorrow morning. Follow all instructions in the bariatric handbook and call with any questions. 1. Please call your doctor or come back to the emergency room should any new symptoms arise. 2. You will receive a courtesy call from [facility] 24-48 hours after discharge. 3. Activity: abstain from alcohol, practice limited stair climbing, no bending, no driving, no exercise, no illicit substances, no lifting, no sex, no tub bath, no work. 4. Diet: continue as discussed with bariatric team.. 5. Dressing Change/Wound Care: Do not change or remove surgical dressings unless they are wet or soiled. 6. Call your doctor if: - Your temperature exceeds 101.5 F - You experience excessive pain or swelling - You have an unexpected reaction to medication - You have excessive bleeding - You experience continued vomiting/nausea - Your incision begins to separate - Your incision shows signs of infection such as increased redness, swelling, excessive pain, heat, or drainage (light blood or clear fluid is normal) 7. General instructions: No lifting greater than 5 lbs for the next 4 weeks. [address] driving within 24 hours of taking narcotic pain medications. If you do not move your bowels in the next 2 days, please take milk of magnesia over the counter. Please follow the post op diet and do not advance your diet until you are seen in the office in about 2 weeks. Please walk around your home every hour or two to prevent blood clots from forming in your legs. You do not need to wake from sleeping to walk. Please sleep in a bed or couch to prevent kinking at the hips and knees. Please take your incentive spirometer (your lung client application support specialist) home with you and use it for the next few days to prevent pneumonias. You may shower, no hot tubs, baths or swimming pools. Please call the office with any questions or concerns such as increasing abdominal pain, fever, chills, shortness of breath, chest pain, leg pain or swelling, or redness or drainage from your incisions. Do not hesitate to contact the office with any questions at . The patient's medical history has been reviewed and they are considered low risk for post op DVT and therefore DVT prophylaxis is not considered necessary. Travel after surgery was reviewed. The patient has not disclosed any travel plans during the first 30 days after surgery and they have been advised that within the first 30 days after surgery any bus, plane, train or car travel over 2 hours in duration is contraindicated due to the possibility of developing blood clots from immobility. Any travel, needs to include periods of ambulation of 10 minutes in duration every 2 hours. The patient was instructed to discuss any plans for travel during this period with their bariatric surgeon. Assessment: stable post op sleeve gastrectomy
[2022-07-23] MEDS: Famotidine/PF 20 MG/2 ML VIAL IVPUSH ×2 (11:13→19:40)
[2022-07-23] MEDS: Lactated Ringers 1,000 ML 100 ML IVCONT (11:14)
[2022-07-23 11:21] LABS: Hematocrit 36.1 % (37.0-47.0); Hemoglobin 11.3 g/dl (12.0-16.0)
[2022-07-23 11:46] LABS: Anion Gap 17 (12-20); Blood Urea Nitrogen 8 mg/dL (9-16); Carbon Dioxide 22 mmol/L (22-29); Chloride 102 mmol/L (96-108); Creatinine Clr Calc Pharmacy 112.2; Estimated Glomerular Filt Rate > 60; Glucose Random 132 mg/dL (60-115); Potassium 3.9 mmol/L (3.3-5.1); Sodium 137 mmol/L (135-145)
--- NOTE | 2022-07-23 12:47 | P.PNGS_ITS ---
Subjective Subjective Date of Service: 07/23/22 Interval history: The patient is seen with the help of the hospital interpretive services provider, Kristel, who facilitated the interaction with the patient and her . Patient reports that she has no significant pain and no nausea, however she has a bit of a sore throat and. She denies any regurgitation, hematemesis or odynophagia. She is tolerating water/bariatric phase 1 without any issue. She does note a feeling of GERD. Physical Exam Vital Signs: Vital Signs: Last Vital Signs Temp 97.3 F 07/23/22 12:41 Pulse 84 07/23/22 12:41 Resp 18 07/23/22 12:41 BP 132/69 07/23/22 12:41 Pulse Ox 99 07/23/22 12:41 O2 Del Method 07/23/22 12:41 O2 Flow Rate 6 07/23/22 10:57 BMI result Body Mass Index 37.0 The patient is nontoxic She appears comfortable, is smiling and speaking in full sentences. Objective Data Active Medications Cyanocobalamin (Cyanocobalamin (Vitamin B-12) 500 Mcg Tablet) 500 mcg PO DAILY COUNTS INCLUDE 234 BEDS AT THE [facility] Last Admin: 07/23/22 12:18 Dose: Not Given Famotidine (Famotidine/Pf 20 Mg/2 Ml Vial) 20 mg IVPUSH BID COUNTS INCLUDE 234 BEDS AT THE [facility] Last Admin: 07/23/22 11:13 Dose: 20 mg Documented By: ALEJANDRO Fentanyl (Fentanyl Citrate/Pf 100 Mcg/2 Ml Vial) 25 mcg IVPUSH Q5M PRN; Protocol PRN Reason: Pain, Moderate (Pain Scale 4-6 Ferrous Sulfate (Ferrous Sulfate 324 Mg Tablet.) 324 mg PO DAILY COUNTS INCLUDE 234 BEDS AT THE [facility] Last Admin: 07/23/22 12:19 Dose: Not Given Hydromorphone HCl (Hydromorphone Hcl 0.5 Mg/0.5 Ml Syringe) 0.25 mg IVPUSH Q5M PRN; Protocol PRN Reason: Pain, Severe (Pain Scale 7-10) Hydromorphone HCl (Hydromorphone Hcl 1 Mg/Ml Syringe) 0.25 mg IVPUSH Q4H PRN; Protocol PRN Reason: Pain, Moderate (Pain Scale 4-6 Lactated Ringer's (Lr) 1,000 mls @ 150 mls/hr IVCONT .Q6H40M COUNTS INCLUDE 234 BEDS AT THE [facility] Last Admin: 07/23/22 07:16 Dose: 150 mls/hr Documented By: DARWIN Promethazine HCl 6.25 mg/ (Sodium Chloride) 50.25 mls @ 201 mls/hr IV ONCE PRN PRN Reason: Nausea and Vomiting Lactated Ringer's (Lr) 1,000 mls @ 100 mls/hr IVCONT .Q10H COUNTS INCLUDE 234 BEDS AT THE [facility] Last Admin: 07/23/22 11:14 Dose: 100 mls/hr Documented By: ALEJANDRO Cefazolin Sodium/Dextrose (Ancef) 2 gm in 50 mls @ 100 mls/hr IV POSTOP ONE Stop: 07/23/22 14:29 Acetaminophen (Ofirmev) 1,000 mg in 100 mls @ 400 mls/hr IV Q6H COUNTS INCLUDE 234 BEDS AT THE [facility] Metoclopramide HCl (Metoclopramide Hcl 10 Mg/2 Ml Vial) 10 mg IVPUSH Q6H PRN PRN Reason: Nausea Multivitamins/Vitamin C (Multivitamin Tablet) 1 tab PO DAILY COUNTS INCLUDE 234 BEDS AT THE [facility] Last Admin: 07/23/22 12:19 Dose: Not Given Ondansetron HCl (Ondansetron Hcl 4 Mg/2 Ml Vial) 4 mg IVPUSH ONCE PRN PRN Reason: Nausea and Vomiting Ondansetron HCl (Ondansetron Hcl 4 Mg/2 Ml Vial) 4 mg IVPUSH Q8H COUNTS INCLUDE 234 BEDS AT THE [facility] Last Admin: 07/23/22 12:21 Dose: Not Given Sodium Chloride (0.9 % Sodium Chloride Flush 3 Ml Syringe) 3 ml IVFLUSH QSHIFT COUNTS INCLUDE 234 BEDS AT THE [facility] Vitamin D (Cholecalciferol (Vitamin D3) 25 Mcg Tablet) 50 mcg PO DAILY COUNTS INCLUDE 234 BEDS AT THE [facility] Last Admin: 07/23/22 12:18 Dose: Not Given Labs CBC & Chem 7: 07/23/22 11:13 07/23/22 11:13 Labs: Laboratory Results - last 24 hr 07/22/22 07/23/22 14:40 11:13 Anion Gap 17 Estim Creat Clear Calc 112.2 Estimated GFR > 60 Random Glucose 132 H Calcium 9.0 D COVID-19 ([facility]) Negative COVID-19 Clin Com See Note Procedures Date of Service Date of Service: 07/23/22 Progress Note: A&P Assessment and plan (1) S/P laparoscopic sleeve gastrectomy: Status: Acute (2) Binge eating disorder: Status: Acute (3) Nonalcoholic steatohepatitis ([facility]ANDOLPH): Status: Acute (4) Morbid obesity: Status: Acute Plan With the help of the full time staff interpreter, I explained to the patient and her that the operation went very well, there was minimal bleeding and that the symptoms of GERD and sore throat should resolve. Their questions seemed to be satisfactorily answered. Will add Chloraseptic spray given the patient's symptoms. See orders. Unless unexpected issues arise with the patient current progress and morning labs, I would expect her to be discharged tomorrow morning. Time Spent With Patient Time: Total time spent is greater than 50% in coordination of care (as documented) at patient's floor/unit and/or counseling patient: Quality Stroke Does the patient have a stroke diagnosis?: No VTE Prior VTE?: No VTE Risk Level:: Surgical - moderate VTE Device Contraindication: N/A - Device Ordered VTE Drug Contraindication: Treatment Not Indicated
[2022-07-23] MEDS: ceFAZolin Sodium/Dextrose,Iso 2 GM/50 ML PIGGYBACK IV (13:33)
[2022-07-23] MEDS: Acetaminophen 1,000 MG/100 ML PIGGYBACK 400 MG IV (14:22)
[2022-07-23] MEDS: Acetaminophen 1,000 MG/100 ML PIGGYBACK 16.7 MG IV (19:40)
[2022-07-23] MEDS: ondansetron HCL 4 MG/2 ML VIAL IVPUSH (19:40)
[2022-07-23] MEDS: 0.9 % Sodium Chloride Flush 3 ML SYRINGE IVFLUSH (19:47)
[2022-07-24] VITALS: BP 101/58; PULSE 76; RESP 18; TEMP 36.4; O2SAT 97
[2022-07-24] MEDS: Acetaminophen 1,000 MG/100 ML PIGGYBACK 16.7 MG IV ×2 (01:41→08:57)
[2022-07-24] MEDS: Lactated Ringers 1,000 ML 100 ML IVCONT (01:49)
[2022-07-24 04:00] VITALS: BP 103/57; PULSE 81; RESP 18; TEMP 37.1; O2SAT 97
[2022-07-24] MEDS: ondansetron HCL 4 MG/2 ML VIAL IVPUSH ×2 (04:22→12:39)
[2022-07-24 05:44] LABS: MANUAL DIFF FLAG NO
[2022-07-24 05:51] LABS: Basophils Percent Auto 0.5 % (0-2); Eosinophils Percent Auto 0.5 % (0-4); Hematocrit 30.6 % (37.0-47.0); Hemoglobin 9.3 g/dl (12.0-16.0); Imm Gran Abs Auto 0.03 X10*3/uL (0.00-0.03); Imm Gran Pct Auto 0.4 % (0.0-0.4); Lymphocytes Absolute Auto 1.8 X10*3/uL (1.2-4.9); Lymphocytes Percent Auto 21.3 % (20-40); Mean Corpuscular HGB Conc 30.4 g/dl (31.0-35.0); Mean Corpuscular Hemoglobin 24.5 pg (27.0-33.0); Mean Corpuscular Volume 80.7 fL (80.0-98.0); Mean Platelet Volume 11.3 fL (9.4-12.3); Monocytes Absolute Auto 0.6 X10*3/uL (0.1-1.2); Monocytes Percent Auto 6.7 % (2-11); Neutrophils Absolute Auto 5.9 x10*3/uL (2.0-8.3); Neutrophils Percent Auto 70.6 % (45-73); Platelet Count 325 X10*3/uL (160-400); Red Blood Count 3.79 X10*6/uL (4.20-5.50); Red Cell Distribution Width 14.6 % (11.0-16.0); White Blood Count 8.3 X10*3/uL (4.8-10.8)
[2022-07-24 06:05] LABS: Anion Gap 14 (12-20); Blood Urea Nitrogen 3 mg/dL (9-16); Calcium 8.5 mg/dL (8.4-10.2); Carbon Dioxide 20 mmol/L (22-29); Chloride 107 mmol/L (96-108); Creatinine Clr Calc Pharmacy 126.1; Estimated Glomerular Filt Rate > 60; Glucose Random 59 mg/dL (60-115); Potassium 3.8 mmol/L (3.3-5.1); Sodium 137 mmol/L (135-145)
[2022-07-24 06:26] LABS: Glucose, Whole Blood 67 mg/dL (60-115)
[2022-07-24] MEDS: Dextrose 50 % 25 GM/50 ML SYRINGE IVPUSH (06:35)
--- NOTE | 2022-07-24 06:49 | P.PNGS_ITS ---
Subjective Subjective Date of Service: 07/24/22 Patient reports: no new complaints and tolerating liquids well Interval history: The patient is seen with Ed Hightower PA-C at the bedside and the hospital animal nutrition teacher who facilitated today's interaction. Patient reports minimal incisional pain and her sore throat is improving. She is tolerating sips of water and meeting goals. She denies any chest pain, difficulty breathing or shortness of breath. Overall, she is doing well. We reviewed typical postoperative goals and her questions seemed to be satisfactorily answered. Physical Exam Vital Signs: Vital Signs: Last Vital Signs Temp 98.8 F 07/24/22 04:00 Pulse 81 07/24/22 04:00 Resp 18 07/24/22 04:00 BP 103/57 L 07/24/22 04:00 Pulse Ox 97 07/24/22 04:00 O2 Del Method 07/24/22 04:00 O2 Flow Rate 6 07/23/22 10:57 BMI result Body Mass Index 37.0 Dressings are clean, dry and intact abdomen is soft with appropriate incisional tenderness and no peritoneal sign Objective Data Active Medications Cyanocobalamin (Cyanocobalamin (Vitamin B-12) 500 Mcg Tablet) 500 mcg PO DAILY [facility] Last Admin: 07/23/22 12:18 Dose: Not Given Documented By: SCARLETT Non-Admin Reason: pt in or Famotidine (Famotidine/Pf 20 Mg/2 Ml Vial) 20 mg IVPUSH BID [facility] Last Admin: 07/23/22 19:40 Dose: 20 mg Documented By: SHANTHI Fentanyl (Fentanyl Citrate/Pf 100 Mcg/2 Ml Vial) 25 mcg IVPUSH Q5M PRN; Protocol PRN Reason: Pain, Moderate (Pain Scale 4-6 Ferrous Sulfate (Ferrous Sulfate 324 Mg Tablet.Dr) 324 mg PO DAILY [facility] Last Admin: 07/23/22 12:19 Dose: Not Given Documented By: SCARLETT Non-Admin Reason: pt i nor Hydromorphone HCl (Hydromorphone Hcl 0.5 Mg/0.5 Ml Syringe) 0.25 mg IVPUSH Q5M PRN; Protocol PRN Reason: Pain, Severe (Pain Scale 7-10) Hydromorphone HCl (Hydromorphone Hcl 1 Mg/Ml Syringe) 0.25 mg IVPUSH Q4H PRN; Protocol PRN Reason: Pain, Moderate (Pain Scale 4-6 Promethazine HCl 6.25 mg/ (Sodium Chloride) 50.25 mls @ 201 mls/hr IV ONCE PRN PRN Reason: Nausea and Vomiting Lactated Ringer's (Lr) 1,000 mls @ 100 mls/hr IVCONT .Q10H [facility] Last Admin: 07/24/22 01:49 Dose: 100 mls/hr Documented By: SHANTHI Acetaminophen (Ofirmev) 1,000 mg in 100 mls @ 16.7 mls/hr IV .Q6H [facility] Last Admin: 07/24/22 01:41 Dose: 16.7 mls/hr Documented By: SHANTHI Metoclopramide HCl (Metoclopramide Hcl 10 Mg/2 Ml Vial) 10 mg IVPUSH Q6H PRN PRN Reason: Nausea Multi-Ingred Medicated Throat Chilo (Throat Chilo, Medicated 177 Ml Bottle) 1 spray MUCOUS MEM Q2H PRN PRN Reason: Sore Throat Multivitamins/Vitamin C (Multivitamin Tablet) 1 tab PO DAILY [facility] Last Admin: 07/23/22 12:19 Dose: Not Given Documented By: SCARLETT Non-Admin Reason: pt in or Ondansetron HCl (Ondansetron Hcl 4 Mg/2 Ml Vial) 4 mg IVPUSH ONCE PRN PRN Reason: Nausea and Vomiting Ondansetron HCl (Ondansetron Hcl 4 Mg/2 Ml Vial) 4 mg IVPUSH Q8H [facility] Last Admin: 07/24/22 04:22 Dose: 4 mg Documented By: SHANTHI Sodium Chloride (0.9 % Sodium Chloride Flush 3 Ml Syringe) 3 ml IVFLUSH QSHIFT [facility] Last Admin: 07/23/22 19:47 Dose: 3 ml Documented By: SHANTHI Vitamin D (Cholecalciferol (Vitamin D3) 25 Mcg Tablet) 50 mcg PO DAILY [facility] Last Admin: 07/23/22 12:18 Dose: Not Given Documented By: SCARLETT Non-Admin Reason: pt in or Labs CBC & Chem 7: 07/24/22 11:56 07/24/22 05:09 Labs: Laboratory Results - last 24 hr 07/23/22 07/24/22 07/24/22 11:13 05:09 05:09 MCV 80.7 MCH 24.5 L MCHC 30.4 L RDW 14.6 Plt Count 325 MPV 11.3 Immature Gran % (Auto) 0.4 Neut % (Auto) 70.6 Lymph % (Auto) 21.3 [place] % (Auto) 6.7 Eos % (Auto) 0.5 Baso % (Auto) 0.5 Lymph # (Auto) 1.8 [place] # (Auto) 0.6 Eos # (Auto) 0.0 Baso # (Auto) 0.0 Abs Immat Gran (auto) 0.03 Absolute Neuts (auto) 5.9 Absolute Nucleated RBC 0.000 Nucleated RBC % (auto) 0.0 Anion Gap 17 14 Estim Creat Clear Calc 112.2 126.1 Estimated GFR > 60 > 60 POC Glucose Random Glucose 132 H 59 L* Calcium 9.0 D 8.5 07/24/22 06:21 MCV MCH MCHC RDW Plt Count MPV Immature Gran % (Auto) Neut % (Auto) Lymph % (Auto) [place] % (Auto) Eos % (Auto) Baso % (Auto) Lymph # (Auto) [place] # (Auto) Eos # (Auto) Baso # (Auto) Abs Immat Gran (auto) Absolute Neuts (auto) Absolute Nucleated RBC Nucleated RBC % (auto) Anion Gap Estim Creat Clear Calc Estimated GFR POC Glucose 67 Random Glucose Calcium Procedures Date of Service Date of Service: 07/24/22 Progress Note: A&P Assessment and plan (1) S/P laparoscopic sleeve gastrectomy: Status: Acute (2) Binge eating disorder: Status: Acute (3) Nonalcoholic steatohepatitis (RANDOLPH): Status: Acute (4) Morbid obesity: Status: Acute Plan Decrease IV fluid and recheck a CBC at noon. I suspect the patient has dilutional anemia secondary to the BUN falling from 8 to 3, the lack of tachycardia or worsening pain or low-grade fever that frequently accompanies intra-abdominal bleeding. Regardless, we can advanced to bariatric phase 2 diet and continue to monitor the patient until noon. If her hemoglobin continues to fall, a CT of the abdomen and pelvis with oral and IV contrast will be in order, however, clinically at this time I do not believe this will be necessary. With the help of the animal nutrition teacher, the patient has questions regarding postop plan and today seem to be answered. ADDENDUM Note hemoglobin stable. Plan for discharge Time Spent With Patient Time: Total time spent is greater than 50% in coordination of care (as documented) at patient's floor/unit and/or counseling patient: Quality Stroke Does the patient have a stroke diagnosis?: No VTE Prior VTE?: No VTE Risk Level:: Surgical - moderate VTE Device Contraindication: N/A - Device Ordered VTE Drug Contraindication: Treatment Not Indicated
[2022-07-24 06:53] LABS: Glucose, Whole Blood 191 mg/dL (60-115)
[2022-07-24] MEDS: Famotidine/PF 20 MG/2 ML VIAL IVPUSH (07:15)
[2022-07-24 07:47] VITALS: BP 108/61; PULSE 78; RESP 17; TEMP 37.1; O2SAT 98
--- NOTE | 2022-07-24 09:00 | HO.POSTANES ---
Post Anesthesia Evaluation Post Anesthesia Evaluation Vital Signs: Vital Signs Temp Pulse Resp BP Pulse Ox O2 Del Method 07/24/22 07:47 98.7 F 78 17 108/61 98 Room Air Anesthesia: General Endotracheal-GETA Mental Status: Awake Pain Control: Satisfactory Nausea/Vomiting: None Hydration: Adequate Anesthesia-Related Issues: No Anes. Related Issues
[2022-07-24 12:13] LABS: Hematocrit 31.4 % (37.0-47.0); Hemoglobin 9.6 g/dl (12.0-16.0); Mean Corpuscular HGB Conc 30.6 g/dl (31.0-35.0); Mean Corpuscular Hemoglobin 24.7 pg (27.0-33.0); Mean Corpuscular Volume 80.7 fL (80.0-98.0); Mean Platelet Volume 11.1 fL (9.4-12.3); Platelet Count 321 X10*3/uL (160-400); Red Blood Count 3.89 X10*6/uL (4.20-5.50); Red Cell Distribution Width 14.6 % (11.0-16.0); White Blood Count 7.2 X10*3/uL (4.8-10.8)
--- NOTE | 2022-07-24 13:58 | HO.POSTANES ---
Post Anesthesia Evaluation Post Anesthesia Evaluation Vital Signs: Vital Signs Temp Pulse Resp BP Pulse Ox O2 Del Method 07/24/22 07:47 98.7 F 78 17 108/61 98 Room Air 07/24/22 04:00 98.8 F 81 18 103/57 L 97 Room Air Anesthesia: General Endotracheal-GETA Mental Status: Awake Pain Control: Satisfactory Nausea/Vomiting: None Hydration: Adequate Anesthesia-Related Issues: No Anes. Related Issues
--- NOTE | 2022-07-24 14:31 | MHC.CM.PN ---
PT WILL DC HOME TODAY WITH NO SERVICES PT TO ARRANGE TRANSPORT
== END 2022-07-24 14:42 | disposition home or self-care (01) | DRG 403 ==
LOC: HO.SSSA 10:49 → HO.S3 11:12
PROVIDERS: Physician Assistant; Physician Assistant Surgical; Admitting Provider Surgery; PCP Internal Medicine; Visit Provider Surgery
PROC: 0DB64Z3 Excision of Stomach, Percutaneous Endoscopic Approach, Vertical (ICD-10-PCS; CPT 43845; principal; 2022-07-23 07:30)
DX: E66.01 Morbid (severe) obesity due to excess calories (principal); K75.81 Nonalcoholic steatohepatitis (NASH); F50.81 Binge eating disorder; K21.9 Gastro-esophageal reflux disease without esophagitis; Z20.822 Contact with and (suspected) exposure to COVID-19; Z68.37 Body mass index [BMI] 37.0-37.9, adult; Z87.891 Personal history of nicotine dependence; Z98.51 Tubal ligation status; Z79.899 Other long term (current) drug therapy
CPT/HCPCS: 36415; 80048; 80053; 80061; 82306; 82607; 82728; 82947; 83036; 83540; 83970; 84425; 84443; 84590; 84630; 85014; 85018; 85025; 85027; 85610; 85730; 86140; 86850; 86900; 86901; 87635; 88307; 88342; C9088; J0131; J0690; J1100; J1170; J2250; J2405; J2550; J2765; J2795; J3010

== ENCOUNTER → 2022-08-27 15:03 | Outpatient (BNVA) | payer MEDICAID, SELFPAY | PROVIDERS: PCP Internal Medicine; Visit Provider Physician Assistant | DX: Z13.89 Encounter for screening for other disorder (principal) ==

== ENCOUNTER → 2022-09-24 15:24 | Outpatient (BNVA) | payer MEDICAID, SELFPAY | PROVIDERS: PCP Internal Medicine; Visit Provider Physician Assistant | DX: Z13.89 Encounter for screening for other disorder (principal) ==

== ENCOUNTER → 2022-11-19 10:00 | Outpatient (BNVA) | payer MEDICAID, SELFPAY | PROVIDERS: PCP Internal Medicine; Visit Provider Physician Assistant ==

== ENCOUNTER → 2023-03-12 16:00 | Outpatient (BNVA) | payer MEDICAID, SELFPAY | PROVIDERS: PCP Internal Medicine; Visit Provider Physician Assistant | DX: E66.3 Overweight (principal); Z98.84 Bariatric surgery status; K75.81 Nonalcoholic steatohepatitis (NASH) ==